=== PATIENT | female | born 1955 | race Caucasian/White ===

== ENCOUNTER 2018-07-04 08:27 | Day surgery (SDC) | payer BC, OTHER ==
[2018-06-28 11:09] VITALS: BMI 19.3
[2018-07-04] MEDS ORDERED: PROPOFOL 20 ML ONE ×2 (08:40)
[2018-07-04] MEDS ORDERED: LIDOCAINE HCL/PF 2% SDV 5ML VIAL ONE (08:41)
[2018-07-04 09:36] VITALS: TEMP 98.1
[2018-07-04 10:32] VITALS: BP 103/63; PULSE 78
== END 2018-07-04 10:20 | disposition home or self-care (01) ==
LOC: FASU-ENDO 08:27
PROVIDERS: ATTEND Internal Medicine Gastroenterology
PROC: 0DJD8ZZ Inspection of Lower Intestinal Tract, Via Natural or Artificial Opening Endoscopic (ICD-10-PCS; principal; 2018-07-04 09:08)
DX: Z86.010 Personal history of colon polyps (principal); K57.30 Diverticulosis of large intestine without perforation or abscess without bleeding